=== PATIENT | male | born 1970 | race Caucasian/White ===

== ENCOUNTER 2020-02-08 09:14 | Emergency (ER) | payer BC, SELFPAY ==
[2020-02-08 09:22] VITALS: BP 148/97; PULSE 75; RESP 20; TEMP 36.8; O2SAT 99
--- NOTE | 2020-02-08 09:37 | ED.GENADULT ---
HPI - General Adult General Chief complaint: Back Pain/Injury Stated complaint: back spasms Time Seen by Provider: 02/08/20 09:30 Source: patient and RN notes reviewed Mode of arrival: ambulatory Limitations: no limitations History of Present Illness HPI narrative: 49-year-old male presents with complaints of Right lower back pain that radiates down the Right lateral leg for the past 2 days. Advil 800mg last on 02/07/20 at 08:00 with little to no relief. History of back pain and surgery. Denies new injuries or falls. 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 Denies numbness or tingling. Denies fever or chills. No upper or lower extremity pain or weakness. Exacerbating factors consist of prolong walking, standing, and bending. Denies problems with urinating or having a bowel movement. No flank pain or hematuria or dysuria. The patient reports he have not been diagnosed with COVID-19. The patient reports he is not waiting for the results of a COVID-19 lab test. The patient reports he do not have fever, chills, weakness, or fatigue. The patient reports he do not have a new or worsening cough or shortness of breath. Denies chest pain. The patient reports he do not have any loss of taste, rhinorrhea, congestion, sore throat, nausea, vomiting, abdominal pain, and diarrhea. Tolerating po intake well. Denies recent traveling. Denies concerns for COVID-19 or exposures been home with limited outdoor exposure except for essential household needs, work, and return home. At this time, patient is not suspected of having COVID-19. Some parts of this dictation were generated by voice recognition software and may contain typographical and/or grammatical inaccuracies. Related Data Allergies Allergy/AdvReac Type Severity Reaction Status Date / Time No Known Allergies Allergy Verified 02/08/20 09:21 Review of Systems Review of Systems: Narrative: CONSTITUTIONAL: Denies fever, chills, sweats. EYES: Denies visual changes, redness, discharge. ENT: Denies rhinorrhea, congestion, sore throat, otalgia. CARDIOVASCULAR: Denies chest pain, palpitations, edema. RESPIRATORY: Denies dyspnea, wheezing, cough. GASTROINTESTINAL: Denies abdominal pain, nausea, vomiting, diarrhea. GENITOURINARY: Denies dysuria, hematuria, abnormal discharge. SKIN: Denies rash or itching. MUSCULOSKELETAL: Complains of RT lower back pain that radiates down RT lateral leg. Denies joint pain or myalgia. NEUROLOGIC: Denies numbness or focal weakness. PSYCHIATRIC: Denies anxiety or depression. All systems reviewed & are unremarkable except as noted in HPI and below. [facility] Past Medical History Medical History (Updated 02/08/20 @ 09:59 by JESSICA Lainez) Chronic back pain Surgical History Surgical History (Updated 02/08/20 @ 09:55 by JESSICA Lainez) History of cervical spinal surgery History of shoulder surgery Right Hx of inguinal hernia surgery Right Family History Family History (Updated 02/08/20 @ 09:56 by JESSICA Lainez) Father Acute myocardial infarction Mother Asthma Hypertension Social History Social History (Updated 02/08/20 @ 09:56 by JESSICA Lainez) Smoking status: Never smoker Tobacco type: cigarettes Second hand tobacco smoke exposure: No Alcohol intake: former Substance use: never Living arrangements: with family Occupation/Education: occupation Gender identity (if verbalized by the patient): Male Comments At time of signature, agree with nurse past medical, surgical, social, and family history. There is relevant patient's past medical history pertinent to the presenting complaint, no relevant family history pertinent to the presenting complaint. Exam Narrative: Exam Narrative: GENERAL: This is a well-nourished, well-developed patient, in no apparent distress. Talks in full sentences without deficits and a
[2020-02-08] MEDS: KETOROLAC (*BKC) 60 MG/2 ML VIAL IM (09:48)
== END 2020-02-08 10:10 | disposition home or self-care (01) ==
PROVIDERS: Emergency Provider Nurse Practitioner Family; PCP Family Medicine
DX: M54.41 Lumbago with sciatica, right side (principal)
CPT/HCPCS: 96372; 99203; G0463; J1885

== ENCOUNTER 2023-07-20 10:33 | Emergency (ER) | payer OTHER, SELFPAY ==
--- NOTE | ~2023-07-20 | CT_ITS ---
EXAMINATION: CT lumbar spine wo con DATE: 07/20/2023 13:19 INDICATION: Low back pain radiating to the right leg TECHNIQUE: Computed tomography (CT) of the lumbar spine was performed without intravenous contrast. A utomated exposure control and iterative reconstruction technique were employed. The dose-length produ ct was 1424.13 mGy-cm. COMPARISON: Lumbar spine radiograph dated 06/09/2016 FINDINGS: Postoperative change of prior L5 laminectomy and partial L4 laminectomy. 3 mm anterolisthesis L4 on L 5. Negligible lumbar levocurvature. Mild likely physiologic anterior wedging at T11 and T12. Lumbar v ertebral body heights are normal. Moderate disc height loss with vacuum phenomena at L4-L5. The follo wing disc levels are specifically discussed: T11-T12: The disc does not extend beyond the endplate margin. There is mild bilateral facet joint ost eoarthritis. There is no neural foraminal stenosis. There is no central canal stenosis. T12-L1: The disc does not extend beyond the endplate margin. There is moderate to severe bilateral fa cet joint osteoarthritis. There is mild left neural foraminal stenosis. There is no central canal sergio nosis. L1-L2: The disc does not extend beyond the endplate margin. There is moderate bilateral facet joint o steoarthritis. There is no neural foraminal stenosis. There is no central canal stenosis. L2-L3: Disc is mildly bulging. There is moderate left and mild to moderate right facet joint osteoart hritis. There is mild left neural foraminal stenosis. There is no central canal stenosis. L3-L4: Disc is mildly bulging. There is hypertrophy of the ligamentum flavum. There is moderate righ t and moderate to severe left facet joint osteoarthritis. There is mild bilateral neural foraminal st enosis. There is moderate central canal stenosis. L4-L5: Disc is bulging. There is severe bilateral facet joint osteoarthritis. There is moderate to se lennie bilateral neural foraminal stenosis. There is moderate to severe central canal stenosis immediat allison cephalad to the level of the partial laminectomy for posterior decompression. L5-S1: Disc is mildly bulging. There is mild to moderate right and severe left facet joint osteoarthr itis. There is moderate bilateral neural foraminal stenosis. There is no central canal stenosis with posterior decompression. IMPRESSION: 1. Progression of moderate lower lumbar predominant spondylosis most notable for a 3 mm anterolisthes is L4 on L5 with disc bulge and severe bilateral facet osteoarthritis resulting in moderate to severe central canal and bilateral neural foraminal stenosis at L4-L5 Reviewed, dictated and finalized at location A. 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 Progression of moderate lower lumbar predominant spondylosis most notable fo r a 3 mm anterolisthesis L4 on L5 with disc bulge and severe bilateral facet os teoarthritis resulting in moderate to severe central canal and bilateral neural foraminal stenosis at L4-L5
--- NOTE | ~2023-07-20 | XR_ITS ---
EXAMINATION: XR hip RT 2V w AP pelvis INDICATION: Right hip pain TECHNIQUE: AP view of the pelvis and two views of the right hip are obtained. COMPARISON: None available FINDINGS: Bone alignment is normal. There is no fracture. There is a soft tissue calcification of the proximal thigh. IMPRESSION: 1. No acute osseous abnormality. Reviewed, dictated and finalized at location L. ON PROGRAMMER
[2023-07-20 10:44] VITALS: BP 130/77; PULSE 71; RESP 16; TEMP 36.4; O2SAT 100
--- NOTE | 2023-07-20 12:58 | ED.LOWEXIN ---
HPI - Extremity Injury (Lower) General Chief Complaint: Extremity Injury, Lower Stated Complaint: right hip pain, no known injury Time Seen by Provider: 07/20/23 12:58 Source: patient Mode of arrival: ambulatory Limitations: no limitations History of Present Illness HPI Narrative: This is a 53-year-old male that presents to the emergency department for low back pain and right-sided hip pain. Ongoing since yesterday. No recent injury or trauma. Reports history of previous lumbar spine surgery about 10 years ago. He does have problems with sciatica. Denies saddle anesthesia, bowel or bladder incontinence. Related Data Allergies Allergy/AdvReac Type Severity Reaction Status Date / Time No Known Allergies Allergy Verified 07/20/23 12:52 Review of Systems Review of Systems: CONSTITUTIONAL: Denies fever SKIN: Denies rash MUSCULOSKELETAL: Reports back pain, joint pain, and myalgia. NEUROLOGIC: Denies numbness, or weakness. All systems reviewed & are unremarkable except as noted in HPI and below PMFSH Past Medical History Medical History (Updated 07/20/23 @ 14:33 by Jammie Callahan PA-C) Chronic back pain Surgical History Surgical History (Updated 02/08/20 @ 09:55 by JESSICA Lainez) History of cervical spinal surgery History of shoulder surgery Right Hx of inguinal hernia surgery Right Family History Family History (Updated 02/08/20 @ 09:56 by JESSICA Lainez) Father Acute myocardial infarction Mother Asthma Hypertension Social History Social History (Updated 02/08/20 @ 09:56 by JESSICA Lainez) Smoking status: Never smoker Tobacco type: cigarettes Second hand tobacco smoke exposure: No Alcohol intake: former Substance use: never Living arrangements: with family Occupation/Education: occupation Gender identity (if verbalized by the patient): Male Exam Narrative: GENERAL: Well-appearing, well-nourished, and in no acute distress. HEAD: Normocephalic, atraumatic. EYES: EOMI. CHEST: Clear to auscultation. No respiratory distress. No wheezes rales or rhonchi HEART: Regular rate and rhythm. No murmur heard. Normal peripheral pulses. BACK: No midline spinal tenderness EXTREMITIES: Normal range of motion. No edema. Strength equal in bilateral lower extremities (5/5) SKIN: Warm, dry, no rash. NEURO: No focal deficits. Alert and oriented x3. PSYCH: Normal mood and affect Course Course Emergency Course: Patient updated on his workup and agrees with plan of care Vital Signs Vital signs: Vital Signs Temperature 97.6 F 07/20/23 10:44 Pulse Rate 71 07/20/23 10:44 Respiratory Rate 16 07/20/23 10:44 Blood Pressure 130/77 07/20/23 10:44 Pulse Oximetry 100 07/20/23 10:44 Oxygen Delivery Room Air 07/20/23 10:44 Temperature 97.6 F 07/20/23 10:44 Pulse Rate 71 07/20/23 10:44 Respiratory Rate 16 07/20/23 10:44 Blood Pressure 130/77 07/20/23 10:44 Pulse Oximetry 100 07/20/23 10:44 Oxygen Delivery Room Air 07/20/23 10:44 MDM - Extremity Injury (Lower) MDM Narrative Medical decision making narrative: Patient presents to the emergency department for low back pain and right-sided hip pain. Ongoing over the last couple of days. No recent injury or trauma. Patient is neurovascularly intact. Right hip/pelvic x-rays without acute osseous abnormalities. CT scan of the lumbar spine shows progression of moderate lower lumbar spondylosis. Patient was updated on his workup and agrees with plan of care. Will be given further follow-up with Neurosurgery. He was given warnings to return to the ER Differential Diagnosis Differential diagnosis: Likely other (muscle strain, ) Imaging Data Radiologist's impression: ITS Impressions Hip/Pelvis X-Ray 07/20/23 13:36 IMPRESSION: 1. No acute osseous abnormality. Lumbar Spine CT 07/20/23 13:42 IMPRESSION: 1. Progression of moderate lower l
[2023-07-20] MEDS: ACETAMINOPHEN 500 MG TABLET 1000 MG PO (13:04)
== END 2023-07-20 14:52 | disposition home or self-care (01) ==
PROVIDERS: Emergency Provider Physician Assistant; PCP Family Medicine
DX: M54.50 Low back pain, unspecified (principal); M25.551 Pain in right hip; M47.816 Spondylosis without myelopathy or radiculopathy, lumbar region; M48.061 Spinal stenosis, lumbar region without neurogenic claudication
CPT/HCPCS: 72131; 73502; 99284; A9270